=== PATIENT | male | born 1960 | race Caucasian/White ===

== ENCOUNTER 2016-11-08 15:17 | Emergency (ER) | payer OTHER ==
[~2016-11-08] VITALS: Ht 177.8 cm; Wt 81.8 kg
[~2016-11-08 15:17] MED LIST: PERCOCET 325 MG1 TA2 PO; SYNTHROID PO
[2016-11-08 15:22] VITALS: BP 115/70; TEMP 98.2
[2016-11-08] MEDS ORDERED: TIROSINT88 MC1 PO (15:26)
[2016-11-08] MEDS ORDERED: SYNTHROID0.1 MG/TAB PO (15:26)
[2016-11-08] MEDS ORDERED: NORCO 325 MG-51 TAB PO (16:22)
[2016-11-08 16:40] VITALS: PULSE 82
== END 2016-11-08 16:41 | disposition home or self-care (01) ==
LOC: COL.ER 15:17
DX: S46.291A Other injury of muscle, fascia and tendon of other parts of biceps, right arm, initial encounter (principal); X50.0XXA Overexertion from strenuous movement or load, initial encounter